=== PATIENT | female | born 2000 | race Hispanic/Latino ===

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

== ENCOUNTER 2018-02-15 16:45 | Emergency (ER) | payer BC ==
[~2018-02-15] VITALS: Ht 154.9 cm; Wt 57.6 kg
[2018-02-15 17:08] VITALS: BP 111/61
--- NOTE | 2018-02-15 17:15 | NUR ---
Arrival Pt in ED with the complaint of lower abdominal pain. States that it feels like when she had a bad UTI once, but she is worried that she may have got an STD from a boy that she slept with 3 weeks ago. Stated that her friend told her the boy was tested and had chlamydia. Pt. stated that she was on her period for almost the whole month of December and after that has discharge that what clear and white in color. Pt. states that the discharge has a foul odor. Pt is laying on gurny visiting with friend, pt is in stable condition at this time
[2018-02-15 17:38] LABS: BILIRUBIN,URINE NEGATIVE (NEGATIVE)
[2018-02-15 18:05] LABS: UA COLOR AMBER (YELLOW)
[2018-02-15 18:06] LABS: APPEARANCE,URINE CLOUDY (CLEAR)
[2018-02-15] MEDS ORDERED: ROCEPHIN IM IM STA (19:33)
--- NOTE | 2018-02-15 19:39 | ER.PDOC ---
General Chief Complaint: Abdomen Pain Stated Complaint: ABD PAIN Time seen by MD: 17:50 Source: patient Exam Limitations: no limitations History of Present Illness Initial Comments Thick foul vag disch for 1 wk. Had unprotected sex 2 wks ago. No sores. Pelvic pain. No urine or bowel c/o. Timing/Duration: other (above) Severity/Quality: mild, moderate Radiation: no radiation Associated Symptoms: denies symptoms, other (LMP entire last month. Unusual for her, but just came off contraceptive hormone Tx.) Exacerbated by: nothing Relieved By: nothing Allergies: Coded Allergies: No Known Allergies (Unverified , 10/22/16) Home Meds Reported Medications Hydrocodone Bit/Acetaminophen (NORCO 5-325) 1 Each Tablet, 1 TAB PO Q8HR PRN for PAIN 05/18/16 Vital Signs First Vital Signs Date Time Temp Pulse Resp B/P (MAP) Pulse Ox O2 Delivery O2 Flow Rate FiO2 02/15/18 17:05 98.2 89 16 98.2 02/15/18 17:05 99 Room Air 02/15/18 17:08 111/61 (78) Last Vital Signs Date Time Temp Pulse Resp B/P (MAP) Pulse Ox O2 Delivery O2 Flow Rate FiO2 02/15/18 17:08 98.2 89 16 111/61 (78) 99 Room Air 98.2 Past Medical History Medical History: no pertinent history Surgical History: no surgical history LMP (females 10-50): IRREGULAR MENS. Social History Smoking: non-smoker Alcohol Use: none Drug Use: none Constitutional: no symptoms reported EENTM: no symptoms reported Respiratory: no symptoms reported Cardiovascular: no symptoms reported Gastrointestinal: no symptoms reported Genitourinary: see HPI Musculoskeletal: no symptoms reported Skin: no symptoms reported All Other Systems: Reviewed and Negative Physical Exam General Appearance: No Apparent Distress, WD/WN, Anxious HEENT: PERRL/EOMI, Normal ENT Inspection Neck: Non-Tender, Full Range of Motion, Supple Respiratory: chest non-tender, lungs clear, normal breath sounds Cardiovascular: Normal Peripheral Pulses, Regular Rate, Rhythm, No Edema, No Gallop Gastrointestinal: Normal Bowel Sounds, No Pulsatile Mass, Tenderness (w/o guarding. ) Pelvic: Normal External Exam, Discharge (thick white. 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, No Motor/Sensory Deficits, Alert, Normal Mood/Affect, Oriented x 3 Skin: Normal Color, Warm/Dry Lymphatic: No Adenopathy Results/Orders Results/Orders Laboratory Tests Test 02/15/18 17:32 Urine Collection Type CCMS Urine Color SANTHOSH (YELLOW) Urine Appearance CLOUDY (CLEAR) Urine Bilirubin NEGATIVE MG/DL (NEGATIVE) Urine Ketones NEGATIVE (NEGATIVE) Urine Specific [place] 1.020 (1.005-1.035) Urine pH 6.5 (5.0-6.0) Urine Protein NEGATIVE (NEGATIVE) Urine Urobilinogen 1.0 (NEGATIVE) Urine Nitrate NEGATIVE (NEGATIVE) Urine Leukocyte Esterase 100/ul 1+ (NEGATIVE) Urine Blood NEGATIVE (NEGATIVE) Urine RBC NONE SEEN RBC/HPF (NONE Urine WBC 5-10 WBC/HPF (0-2) Urine Squamous Epithelial Cells MODERATE #/HPF (FEW) Urine Bacteria MODERATE (NONE SEEN) Urine Other MODERATE MUCOUS #/HPF Urine Glucose NORMAL (NEGATIVE) Urine HCG, Qualitative NEGATIVE (NEGATIVE) Progress Progress Preg test neg. Given STD meds. wet prep pos for clue cells. Course Vitals & review Data Vital Sign - Last 24 Hours 02/15/18 02/15/18 02/15/18 17:05 17:05 17:08 Temp 98.2 98.2 98.2 98.2 98.2 98.2 Pulse 89 89 89 Resp 16 16 16 B/P (MAP) 111/61 (78) Pulse Ox 99 99 O2 Delivery Room Air Room Air Laboratory Tests Test 02/15/18 17:32 Urine Collection Type CCMS Urine Color SANTHOSH Urine Appearance CLOUDY Urine Bilirubin NEGATIVE MG/DL Urine Ketones NEGATIVE Urine Specific [place] 1.020 Urine pH 6.5 Urine Protein NEGATIVE Urine Urobilinogen 1.0 Urine Nitrate NEGATIVE Urine Leukocyte Esterase 100/ul 1+ Urine Blood NEGATIVE Urine RBC NONE SEEN RBC/HPF Urine WBC 5-10 WBC/HPF Urine Squamous Epithelial Cells MODERATE #/HPF Urine Bacteria MODERATE Urine Other MODERATE MUCOUS #/HPF Urine Glucose NORMAL Urine HCG, Qualitative NEGATIVE Departure Time of Disposition: 20:38 Disposition: 01 HOME, SELF-CARE Impression: Primary Impression: Bacterial vaginosis Condition: Stable Patient Instructions: Bacterial Vaginosis, Sexually Transmitted Diseases (STD) In Referrals: DEVORAH MCKINLEY MD (PCP) PRIMARY CARE PROVIDER Additional Instructions: No douching. See your doctor next week for follow up. Return if worse. No intercourse until 1 week after treatment complete. Duration or Time Spent with Pa: 45 SONNY HOWARD DO Feb 15, 2018 19:39
[2018-02-15] MEDS ORDERED: ROCEPHIN ONE (19:43)
[2018-02-15] MEDS ORDERED: ZITHROMAX ONE (19:43)
[2018-02-15] MEDS ORDERED: LIDOCAINE 1% VIAL ONE (19:44)
[2018-02-15] MEDS ORDERED: ZITHROMAX PO ONE (20:00)
[2018-02-15 20:52] VITALS: BP 111/61
== END 2018-02-15 20:51 | disposition home or self-care (01) ==
LOC: ER 16:45
DX: N76.0 Acute vaginitis (principal); B96.89 Other specified bacterial agents as the cause of diseases classified elsewhere
CPT/HCPCS: 36415; 81000; 81025; 87077; 87086; 87186; 87210; 87591; 96372; 99284; J0696; J2001; Q0144

== ENCOUNTER 2018-03-13 08:51 | Emergency (ER) | payer BC ==
[~2018-03-13] VITALS: Ht 154.9 cm; Wt 57.2 kg
[2018-03-13 09:12] VITALS: BP 117/63
[2018-03-13] MEDS ORDERED: ZOFRAN ODT SL STA (09:16)
[2018-03-13] MEDS ORDERED: LOMOTIL PO STA (09:16)
--- NOTE | 2018-03-13 09:22 | ER.PDOC ---
General Chief Complaint: Abdomen Pain Stated Complaint: ABD PAINS, D Time seen by MD: 09:00 Source: patient Exam Limitations: no limitations History of Present Illness Severity/Quality: mild Abdominal Pain Onset Location: RUQ, LUQ Associated Symptoms (vomiting): mild vomiting Associated Symptoms (diarrhea): mild, blood-streaked Allergies: Coded Allergies: No Known Allergies (Unverified , 10/22/16) Home Meds Reported Medications Hydrocodone Bit/Acetaminophen (NORCO 5-325) 1 Each Tablet, 1 TAB PO Q8HR PRN for PAIN 05/18/16 Vital Signs First Vital Signs Date Time Temp Pulse Resp B/P (MAP) Pulse Ox O2 Delivery O2 Flow Rate FiO2 02/15/18 20:52 89 03/13/18 09:07 97.8 18 98 Room Air 97.8 03/13/18 09:12 117/63 (81) Last Vital Signs Date Time Temp Pulse Resp B/P (MAP) Pulse Ox O2 Delivery O2 Flow Rate FiO2 03/13/18 09:12 97.3 76 18 117/63 (81) 98 Room Air 97.3 Past Medical History Medical History: no pertinent history Surgical History: no surgical history LMP (females 10-50): 1 month Family History Significant Family History: no pertinent family hx Social History Smoking: non-smoker Alcohol Use: none Drug Use: none Reviewed Nursing Reviewed: Vital Signs, Abn. Noted All Other Systems: Reviewed and Negative Physical Exam General Appearance: No Apparent Distress, WD/WN HEENT: PERRL/EOMI, Normal ENT Inspection, TMs Normal, Pharynx Normal Neck: Non-Tender, Full Range of Motion, Supple, Normal Inspection Respiratory: chest non-tender, lungs clear, normal breath sounds, no respiratory distress, no accessory muscle use Cardiovascular: Normal Peripheral Pulses, Regular Rate, Rhythm, No Edema, No Gallop, No JVD, No Murmur Gastrointestinal: Tenderness (RUQ) Back: Normal Inspection, No CVA Tenderness, No Vertebral Tenderness Extremities: Normal Range of Motion, Non-Tender, Normal Inspection, No Pedal Edema, No Calf Tenderness, Normal Capillary Refill, Pelvis Stable 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, No Motor/Sensory Deficits, Alert, Normal Mood/Affect, Oriented x 3 Skin: Normal Color, Warm/Dry Lymphatic: No Adenopathy Results/Orders Results/Orders Laboratory Tests Test 03/13/18 09:25 White Blood Count 5.1 10^3/uL (4.5-12.5) Red Blood Count 5.22 10^6/uL (4.00-5.20) Hemoglobin 16.3 g/dL (12.4-14.8) Hematocrit 46.0 % (36.0-46.0) Mean Corpuscular Volume 88.1 fL (78-100) Mean Corpuscular Hemoglobin 31.2 pg (26-34) Mean Corpuscular Hemoglobin Concent 35.4 g/dL (33-37) Red Cell Distribution Width 12.2 % (11.5-14.5) Platelet Count 214 10^3/uL (150-400) Mean Platelet Volume 9.8 fL (7.8-11.0) Neutrophils (%) (Auto) 48.1 % (41.0-85.0) Lymphocytes (%) (Auto) 36.4 % (24.0-44.0) Monocytes (%) (Auto) 11.2 % (5.0-12.0) Neutrophils # (Auto) 2.4 10^3/uL (1.8-8.0) Lymphocytes # (Auto) 1.9 10^3/uL (1.2-5.2) Monocytes # (Auto) 0.6 10^3/uL (0.0-0.4) Absolute Immature Granulocyte (auto 0 10^3 u/L (0-2) Eosinophils % 3.7 % (0.0-5.0) Basophils % 0.6 % (0.0-0.2) Basophils # 0.0 10^3/uL (0.0-0.1) Eosinophil Count 0.2 10^3/uL (0.0-0.2) Prothrombin Time 9.9 SEC (9.8-11.9) Prothrombin Time INR (Non-Therap) 1.0 Sodium Level 141 mmol/L (132-145) Potassium Level 3.6 mmol/L (3.6-5.2) Chloride Level 105.0 mmol/L (96-109) Carbon Dioxide Level 25.3 mmol/L (20.0-32) Anion Gap 14.3 Blood Urea Nitrogen 14 mg/dL (7-18) Creatinine 0.82 mg/dL (0.59-1.40) Estimated GFR () 108.7 (>/=60) BUN/Creatinine Ratio 17.0 Glucose Level 104 mg/dL (70-110) Calcium Level 9.2 mg/dL (8.4-10.5) Total Bilirubin 0.6 mg/dL (0.2-1.0) Aspartate Amino Transf (AST/SGOT) 11 U/L (0-35) Alanine Aminotransferase (ALT/SGPT) 19 U/L (12-78) Alkaline Phosphatase 83 U/L (50-136) Total Protein 7.6 g/dL (6.4-8.2) Albumin 4.0 g/dL (3.4-5.0) Globulin 3.6 Amylase Level 41 U/L (25-115) Lipase 167 U/L (114-286) Serum HCG, Qualitative NEGATIVE (NEGATIVE) Percent Immature Gran (Cell Imm) 0.00 % (0.00-0.50) Helicobacter pylori Screen NEGATIVE (NEGATIVE) Administered Medications Medications (Trade) Dose Ordered Sig/[place]ico Route PRN Reason Start Time Stop Time Status Last Admin Dose Admin Diphenoxylate HCl/ Atropine (Lomotil) 1 each STAT STAT PO 03/13/18 09:16 03/13/18 09:21 DC 03/13/18 09:54 Ondansetron HCl (Zofran Odt) 4 mg STAT STAT SL 03/13/18 09:16 03/13/18 09:21 DC 03/13/18 09:54 Ketorolac Tromethamine (Toradol) 60 mg OT ONCE IM 03/13/18 09:30 03/13/18 09:31 DC 03/13/18 09:55 Consult/PCP Time Consult/PCP Called: 11:11 Consult/PCP: DR MCKNILEY Departure Time of Disposition: 10:33 Disposition: 01 HOME, SELF-CARE Impression: Primary Impression: RUQ pain Condition: Improved Referrals: DEVORAH MCKINLEY MD (PCP) PRIMARY CARE PROVIDER Duration or Time Spent with Pa: 2 HRS BERNARDO NEELY MD Mar 13, 2018 09:22
[2018-03-13] MEDS ORDERED: TORADOL IM ONE (09:30)
[2018-03-13 09:31] LABS: BASOPHIL % 0.6 % (0.0-0.2); EOSINOPHIL # 0.2 10^3/uL (0.0-0.2); EOSINOPHIL % 3.7 % (0.0-5.0); HEMOGLOBIN 16.3 g/dL (12.4-14.8); LYMPHOCYTES # 1.9 10^3/uL (1.2-5.2); LYMPHOCYTES % 36.4 % (24.0-44.0); MEAN CELL HGB 31.2 pg (26-34); MEAN CELL HGB CONCENTRATION 35.4 g/dL (33-37); MEAN CORP VOLUME 88.1 fL (78-100); MEAN PLATELET VOLUME 9.8 fL (7.8-11.0); MONOCYTES # 0.6 10^3/uL (0.0-0.4); MONOCYTES % 11.2 % (5.0-12.0); NEUTROPHIL # 2.4 10^3/uL (1.8-8.0); NEUTROPHILS % 48.1 % (41.0-85.0); RED CELL DISTRIBUTION WIDTH 12.2 % (11.5-14.5); WHITE BLOOD CELL 5.1 10^3/uL (4.5-12.5)
[2018-03-13] MEDS ORDERED: ZOFRAN ODT ONE (09:51)
[2018-03-13] MEDS ORDERED: TORADOL ONE (09:52)
[2018-03-13] MEDS ORDERED: LOMOTIL ONE (09:52)
[2018-03-13 10:01] LABS: CALCIUM 9.2 mg/dL (8.4-10.5); CARBON DIOXIDE 25.3 mmol/L (20.0-32)
[2018-03-13 10:03] LABS: HCG QUALITATIVE SERUM NEGATIVE (NEGATIVE)
--- NOTE | 2018-03-13 10:12 | DIREP ---
PROCEDURE:US ABDOMEN LIMITED (SINGLE ORGAN - QUAD) COMPARISON:None. INDICATIONS:RUQ PAIN TECHNIQUE:High resolution sonographic examination was performed of the abdomen. FINDINGS: RIGHT KIDNEY:10.46 cm x 4.99 cm x 5.81 cm, 158.70 ml GALL BLADDER WALL:3 mm CBD:2.6 mm PANCREAS:Normal. LIVER:Normal size and echogenicity. No significant masses. BILIARY:Normal appearing gallbladder and biliary tree. RIGHT KIDNEY:Negative. OTHER:Negative. CONCLUSION:Normal right upper quadrant sonogram with no cholelithiasis or dilated biliary ducts. Dictated by: Ryan Barrientos M.D. on 03/13/2018 at 09:02 AM
[2018-03-13 10:20] LABS: BILIRUBIN,URINE NEGATIVE (NEGATIVE); UROBILINOGEN,URINE NORMAL (NEGATIVE)
[2018-03-13 10:30] LABS: APPEARANCE,URINE HAZY (CLEAR); UA COLOR YELLOW (YELLOW)
[2018-03-13 10:55] VITALS: BP 102/59
[2018-03-13 11:07] VITALS: BP 102/59
== END 2018-03-13 10:56 | disposition home or self-care (01) ==
LOC: ER 08:51
DX: R10.11 Right upper quadrant pain (principal); R10.12 Left upper quadrant pain; R11.10 Vomiting, unspecified; R19.7 Diarrhea, unspecified; Z79.899 Other long term (current) drug therapy
CPT/HCPCS: 36415; 76705; 80053; 80307; 81000; 82150; 83690; 84703; 85025; 85610; 86677; 87086; 96372; 99285; J1885; Q0162

== ENCOUNTER 2018-06-24 15:03 | Emergency (ER) | payer BC, OTHER ==
[~2018-06-24] VITALS: Ht 154.9 cm; Wt 59.0 kg
--- NOTE | 2018-06-24 15:14 | NUR ---
TRIAGE PT TRIAGED AT THIS TIME IN TRIAGE ROOM DUE TO NO AVAILABLE ED BEDS. PT STATES HAS HAD VAGINAL SPOTTING X1 WEEK AND BEGAN HAVING CRAMPING TODAY. PT FOUND OUT TODAY THAT SHE IS . [facility] AND WAS TOLD SHE'S APPROXIMATELY 6 WEEKS . NO ACUTE DISTRESS NOTED. PT WAITING IN WAITING ROOM FOR AVAILABLE BED.
[2018-06-24 15:41] VITALS: BP 107/69
[2018-06-24 16:14] LABS: BILIRUBIN,URINE NEGATIVE (NEGATIVE)
[2018-06-24 16:32] LABS: UA COLOR YELLOW (YELLOW)
[2018-06-24 16:33] LABS: APPEARANCE,URINE SLIGHTLY HAZY (CLEAR)
[2018-06-24 16:49] LABS: BASOPHIL % 0.4 % (0.0-0.2); EOSINOPHIL % 0.8 % (0.0-5.0); HEMOGLOBIN 16.1 g/dL (12.4-14.8); LYMPHOCYTES # 1.1 10^3/uL (1.2-5.2); LYMPHOCYTES % 22.1 % (24.0-44.0); MEAN CELL HGB 31.8 pg (26-34); MEAN CELL HGB CONCENTRATION 36.3 g/dL (33-37); MEAN CORP VOLUME 87.5 fL (78-100); MEAN PLATELET VOLUME 9.9 fL (7.8-11.0); MONOCYTES # 0.5 10^3/uL (0.0-0.4); MONOCYTES % 8.7 % (5.0-12.0); NEUTROPHIL # 3.5 10^3/uL (1.8-8.0); NEUTROPHILS % 67.8 % (41.0-85.0); PLATELET COUNT 212 10^3/uL (150-400); RED CELL DISTRIBUTION WIDTH 12.5 % (11.5-14.5); WHITE BLOOD CELL 5.2 10^3/uL (4.5-12.5)
--- NOTE | 2018-06-24 17:27 | DIREP ---
PROCEDURE:US OB 1ST TRI - TV COMPARISON:None. INDICATIONS:VAGINAL BLEEDING TECHNIQUE:Transabdominal and endovaginal pelvic ultrasound images were obtained. Endovaginal images were obtained to optimally evaluate the and maternal adnexal structures. FINDINGS: GESTATIONAL SAC:Present. No subchorionic hemorrhage. FLUID:Volume within normal limits. POLE:Present. CRL = 0.9 cm, corresponding to an EGA of 7 weeks 0 days. YOLK SAC:Present. CARDIAC ACTIVITY:Present. 145 bpm. UTERUS:The uterus measures approximately 9.0 x 4.5 x 5.6 cm. A single intrauterine gestational sac is identified. OVARIES:The right ovary measures approximately 3.4 x 2.1 x 3.9 cm. The left ovary measures approximately 3.3 x 2.0 x 2.1 cm. Both ovaries appear within normal limits. CUL-DE-SAC:No significant free fluid within the pelvic cul-de-sac. US PATRICK:02/10/2019 CONCLUSION: 1. Single intrauterine corresponding to an estimated gestational age of approximately 7 weeks 0 days per crown-rump length. cardiac activity detected at 145 beats per min. Dictated by: Arnold Zamora M.D. On 06/24/2018 at 05:22 PM
[2018-06-24 17:30] LABS: CALCIUM 8.8 mg/dL (8.4-10.5); CARBON DIOXIDE 22.6 mmol/L (20.0-32)
--- NOTE | 2018-06-24 18:38 | ER.PDOC ---
General Chief Complaint: less 20 wks Stated Complaint: UNDER 20 WKS PREG ABD PAIN Time seen by MD: 18:32 Source: patient Exam Limitations: no limitations History of Present Illness Initial Comments Vaginal bleeding for 1 week Timing/Duration: week, intermittent Severity/Quality: cramping Location of Pain: pelvic pain Vaginal Bleed: spotting LMP (females 10-50): : 1 Para: 0 Test: home Sexual [place] History: multiple partners Associated Symptoms: nausea/vomiting Allergies: Coded Allergies: No Known Allergies (Unverified , 10/22/16) Home Meds Reported Medications Hydrocodone Bit/Acetaminophen (NORCO 5-325) 1 Each Tablet, 1 TAB PO Q8HR PRN for PAIN 05/18/16 Past Medical History Medical History: no pertinent history Surgical History: appendectomy LMP (females 10-50): Social History Smoking: non-smoker Alcohol Use: none Drug Use: none Review of Systems Constitutional: no symptoms reported EENTM: no symptoms reported Respiratory: no symptoms reported Cardiovascular: no symptoms reported Gastrointestinal: no symptoms reported Genitourinary: see HPI All Other Systems: Reviewed and Negative Physical Exam General Appearance: No Apparent Distress, WD/WN Neck: nml inspection, non-tender Cardiovascular/Respiratory: Regular Rate, Rhythm, No M/R/G, Normal Peripheral Pulses, No JVD, Normal Breath Sounds, No Respiratory Distress Abdomen: Normal Bowel Sounds, Soft, No Organomegaly, No Pulsatile Mass, Tenderness (lower abdomen) Back: nml inspection Extremities: Normal Range of Motion, Non-Tender, Normal Inspection, No Pedal Edema, No Calf Tenderness, Normal Capillary Refill 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, No Motor/Sensory Deficits, Alert, Normal Mood/Affect, Oriented x 3 Skin: Normal Color, Warm/Dry Results/Orders Results/Orders Laboratory Tests Test 06/24/18 00:00 06/24/18 16:05 06/24/18 16:40 Urine Collection Type UNKNOWN Urine Color YELLOW (YELLOW) Urine Appearance SLIGHTLY HAZY (CLEAR) Urine Bilirubin NEGATIVE MG/DL (NEGATIVE) Urine Ketones NEGATIVE (NEGATIVE) Urine Specific [place] 1.015 (1.005-1.035) Urine pH 6.5 (5.0-6.0) Urine Protein 15 mg/dL (NEGATIVE) Urine Urobilinogen 4.0 (NEGATIVE) Urine Nitrate NEGATIVE (NEGATIVE) Urine Leukocyte Esterase NEGATIVE (NEGATIVE) Urine Blood NEGATIVE (NEGATIVE) Urine RBC NONE SEEN RBC/HPF (NONE Urine WBC 0-2 WBC/HPF (0-2) Urine Squamous Epithelial Cells MODERATE #/HPF (FEW) Urine Bacteria FEW (NONE SEEN) Urine Other #/HPF Urine Glucose NORMAL (NEGATIVE) Urine HCG, Qualitative POSITIVE (NEGATIVE) White Blood Count 5.2 10^3/uL (4.5-12.5) Red Blood Count 5.06 10^6/uL (4.00-5.20) Hemoglobin 16.1 g/dL (12.4-14.8) Hematocrit 44.3 % (36.0-46.0) Mean Corpuscular Volume 87.5 fL (78-100) Mean Corpuscular Hemoglobin 31.8 pg (26-34) Mean Corpuscular Hemoglobin Concent 36.3 g/dL (33-37) Red Cell Distribution Width 12.5 % (11.5-14.5) Platelet Count 212 10^3/uL (150-400) Mean Platelet Volume 9.9 fL (7.8-11.0) Neutrophils (%) (Auto) 67.8 % (41.0-85.0) Lymphocytes (%) (Auto) 22.1 % (24.0-44.0) Monocytes (%) (Auto) 8.7 % (5.0-12.0) Neutrophils # (Auto) 3.5 10^3/uL (1.8-8.0) Lymphocytes # (Auto) 1.1 10^3/uL (1.2-5.2) Monocytes # (Auto) 0.5 10^3/uL (0.0-0.4) Absolute Immature Granulocyte (auto 0.01 10^3 u/L (0-2) Eosinophils % 0.8 % (0.0-5.0) Basophils % 0.4 % (0.0-0.2) Basophils # 0.0 10^3/uL (0.0-0.1) Eosinophil Count 0.0 10^3/uL (0.0-0.2) Prothrombin Time 10.1 SEC (9.8-11.9) Prothrombin Time INR (Non-Therap) 1.0 Activated Partial Thromboplast Time 23.6 SEC (24.67-30.72) Sodium Level 136 mmol/L (132-145) Potassium Level 3.7 mmol/L (3.6-5.2) Chloride Level 102.0 mmol/L (96-109) Carbon Dioxide Level 22.6 mmol/L (20.0-32) Anion Gap 15.1 Blood Urea Nitrogen 10 mg/dL (7-18) Creatinine 0.70 mg/dL (0.59-1.40) Estimated GFR () 129.1 (>/=60) BUN/Creatinine Ratio 14.0 Glucose Level 91 mg/dL (70-110) Calcium Level 8.8 mg/dL (8.4-10.5) Total Bilirubin 0.6 mg/dL (0.2-1.0) Aspartate Amino Transf (AST/SGOT) 13 U/L (0-35) Alanine Aminotransferase (ALT/SGPT) 17 U/L (12-78) Alkaline Phosphatase 57 U/L (50-136) Total Protein 7.7 g/dL (6.4-8.2) Albumin 4.0 g/dL (3.4-5.0) Globulin 3.7 Human Chorionic Gonadotropin, Quant 21717 mIU/mL Percent Immature Gran (Cell Imm) 0.20 % (0.00-0.50) Progress Progress OB Sonogram: Single intrauterine corresponding to an estimated gestational age of approximately 7 weeks 0 days per crown-rump length. cardiac activity detected at 145 beats per min. Departure Time of Disposition: 18:34 Disposition: 01 HOME, SELF-CARE Impression: Primary Impression: Vaginal bleeding before 22 weeks gestation Additional Impression: UTI (urinary tract infection) Condition: Stable Patient Instructions: Urinary Tract Infection, [id number] Referrals: DEVORAH MCKINLEY MD (PCP) PRIMARY CARE PROVIDER ASHWINI LAWTON NP Additional Instructions: Macrobid Phenergan [facility], call for appointment tomorrow. Duration or Time Spent with Pa: 2 hours Problem Qualifiers Additional Impression: UTI (urinary tract infection) Urinary tract infection type: site unspecified Hematuria presence: with hematuria Qualified Codes: N39.0 - Urinary tract infection, site not specified ; R31.9 - Hematuria, unspecified TREE MORENO MD Jun 24, 2018 18:38
[2018-06-24 19:30] VITALS: BP 110/65
== END 2018-06-24 18:49 | disposition home or self-care (01) ==
LOC: ER 15:03
DX: O23.41 Unspecified infection of urinary tract in pregnancy, first trimester (principal); R31.9 Hematuria, unspecified; O20.9 Hemorrhage in early pregnancy, unspecified; Z90.49 Acquired absence of other specified parts of digestive tract; Z3A.01 Less than 8 weeks gestation of pregnancy
CPT/HCPCS: 36415; 76801; 76817; 80053; 81000; 81025; 84702; 85025; 85610; 85730; 86900; 87086; 99284

== ENCOUNTER 2018-06-30 22:32 | Emergency (ER) | payer OTHER ==
[~2018-06-30] VITALS: Ht 157.5 cm; Wt 52.2 kg
[2018-06-30 22:52] VITALS: BP 112/43
[2018-06-30 23:03] LABS: BILIRUBIN,URINE NEGATIVE (NEGATIVE); UROBILINOGEN,URINE NORMAL (NEGATIVE)
--- NOTE | 2018-06-30 23:06 | ER.PDOC ---
General Chief Complaint: less 20 wks Stated Complaint: ABD PAIN Time seen by MD: 23:00 Source: patient Exam Limitations: no limitations History of Present Illness Initial Comments Pt with abdominal and pelvic pain radiating to back, she was seen for similar reasons on Sunday, an US was performed and an early and only a UTI Timing/Duration: yesterday Severity/Quality: severe, cramping Location of Pain: low back pain LMP (females 10-50): Associated Symptoms: lower back pain Allergies: Coded Allergies: No Known Allergies (Unverified , 10/22/16) Home Meds Reported Medications Hydrocodone Bit/Acetaminophen (NORCO 5-325) 1 Each Tablet, 1 TAB PO Q8HR PRN for PAIN 05/18/16 Past Medical History Medical History: no pertinent history Surgical History: appendectomy LMP (females 10-50): 2 months Social History Smoking: non-smoker Drug Use: none Review of Systems Constitutional: no symptoms reported EENTM: no symptoms reported Respiratory: no symptoms reported Cardiovascular: no symptoms reported Gastrointestinal: see HPI Genitourinary: see HPI Musculoskeletal: no symptoms reported Skin: no symptoms reported Psychiatric/Neurological: no symptoms reported Endocrine: no symptoms reported Hematologic/Lymphatic: no symptoms reported Physical Exam General Appearance: No Apparent Distress, WD/WN EENT: eyes nml inspection, nml ENT inspection, pharynx nml Neck: nml inspection, non-tender Cardiovascular/Respiratory: Regular Rate, Rhythm, No M/R/G, Normal Peripheral Pulses, No JVD, Normal Breath Sounds, No Respiratory Distress Abdomen: Normal Bowel Sounds, Soft, No Organomegaly, No Pulsatile Mass, Tenderness (bilateral pelvic pain) Back: CVA tenderness (bilateral) Extremities: Normal Range of Motion, Non-Tender, Normal Inspection, No Pedal Edema, No Calf Tenderness, Normal Capillary Refill 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, No Motor/Sensory Deficits, Alert, Normal Mood/Affect, Oriented x 3 Skin: Normal Color, Warm/Dry Lymphatic: No Adenopathy Results/Orders Results/Orders Laboratory Tests Test 06/30/18 22:57 06/30/18 23:03 Urine Collection Type CCMS Urine Color YELLOW (YELLOW) Urine Appearance CLEAR (CLEAR) Urine Bilirubin NEGATIVE MG/DL (NEGATIVE) Urine Ketones NEGATIVE (NEGATIVE) Urine Specific [place] 1.010 (1.005-1.035) Urine pH 7 (5.0-6.0) Urine Protein NEGATIVE (NEGATIVE) Urine Urobilinogen NORMAL (NEGATIVE) Urine Nitrate NEGATIVE (NEGATIVE) Urine Leukocyte Esterase NEGATIVE (NEGATIVE) Urine Blood 25 1+ (NEGATIVE) Urine RBC 0-2 RBC/HPF (NONE SEEN) Urine WBC 0-2 WBC/HPF (0-2) Urine Squamous Epithelial Cells FEW #/HPF (FEW) Urine Bacteria RARE (NONE SEEN) Urine Other MUCUS RARE #/HPF Urine Glucose NORMAL (NEGATIVE) White Blood Count 7.0 10^3/uL (4.5-12.5) Red Blood Count 4.62 10^6/uL (4.00-5.20) Hemoglobin 15.0 g/dL (12.4-14.8) Hematocrit 40.2 % (36.0-46.0) Mean Corpuscular Volume 87.0 fL (78-100) Mean Corpuscular Hemoglobin 32.5 pg (26-34) Mean Corpuscular Hemoglobin Concent 37.3 g/dL (33-37) Red Cell Distribution Width 12.3 % (11.5-14.5) Platelet Count 210 10^3/uL (150-400) Mean Platelet Volume 10.1 fL (7.8-11.0) Neutrophils (%) (Auto) 67.7 % (41.0-85.0) Lymphocytes (%) (Auto) 20.0 % (24.0-44.0) Monocytes (%) (Auto) 9.7 % (5.0-12.0) Neutrophils # (Auto) 4.8 10^3/uL (1.8-8.0) Lymphocytes # (Auto) 1.4 10^3/uL (1.2-5.2) Monocytes # (Auto) 0.7 10^3/uL (0.0-0.4) Absolute Immature Granulocyte (auto 0.02 10^3 u/L (0-2) Eosinophils % 2.0 % (0.0-5.0) Basophils % 0.3 % (0.0-0.2) Basophils # 0.0 10^3/uL (0.0-0.1) Eosinophil Count 0.1 10^3/uL (0.0-0.2) Sodium Level 137 mmol/L (132-145) Potassium Level 3.6 mmol/L (3.6-5.2) Chloride Level 104.0 mmol/L (96-109) Carbon Dioxide Level 21.6 mmol/L (20.0-32) Anion Gap 15.0 Blood Urea Nitrogen 7 mg/dL (7-18) Creatinine 0.72 mg/dL (0.59-1.40) Estimated GFR () 125.0 (>/=60) BUN/Creatinine Ratio 9.0 Glucose Level 95 mg/dL (70-110) Calcium Level 8.4 mg/dL (8.4-10.5) Total Bilirubin 0.3 mg/dL (0.2-1.0) Aspartate Amino Transf (AST/SGOT) 13 U/L (0-35) Alanine Aminotransferase (ALT/SGPT) 20 U/L (12-78) Alkaline Phosphatase 60 U/L (50-136) Total Protein 7.1 g/dL (6.4-8.2) Albumin 3.5 g/dL (3.4-5.0) Globulin 3.6 Human Chorionic Gonadotropin, Quant 61121 mIU/mL Percent Immature Gran (Cell Imm) 0.30 % (0.00-0.50) Departure Time of Disposition: 23:54 Disposition: 01 HOME, SELF-CARE Impression: Primary Impression: Urinary tract infection Condition: Stable Patient Instructions: Urinary Tract Infection Referrals: DEVORAH MCKINLEY MD (PCP) PRIMARY CARE PROVIDER Duration or Time Spent with Pa: ADONAY BULLOCK MD Jun 30, 2018 23:06
[2018-06-30 23:09] LABS: BASOPHIL % 0.3 % (0.0-0.2); EOSINOPHIL # 0.1 10^3/uL (0.0-0.2); LYMPHOCYTES # 1.4 10^3/uL (1.2-5.2); MEAN CELL HGB 32.5 pg (26-34); MEAN CELL HGB CONCENTRATION 37.3 g/dL (33-37); MEAN PLATELET VOLUME 10.1 fL (7.8-11.0); MONOCYTES # 0.7 10^3/uL (0.0-0.4); MONOCYTES % 9.7 % (5.0-12.0); NEUTROPHIL # 4.8 10^3/uL (1.8-8.0); NEUTROPHILS % 67.7 % (41.0-85.0); PLATELET COUNT 210 10^3/uL (150-400); RED CELL DISTRIBUTION WIDTH 12.3 % (11.5-14.5)
[2018-06-30 23:12] LABS: APPEARANCE,URINE CLEAR (CLEAR); UA COLOR YELLOW (YELLOW)
[2018-06-30 23:47] LABS: CALCIUM 8.4 mg/dL (8.4-10.5); CARBON DIOXIDE 21.6 mmol/L (20.0-32)
[2018-07-01] VITALS: BP 114/56
[2018-07-01 00:07] VITALS: BP 114/56
== END 2018-07-01 00:02 | disposition home or self-care (01) ==
LOC: ER 22:32
DX: O23.41 Unspecified infection of urinary tract in pregnancy, first trimester (principal); Z3A.08 8 weeks gestation of pregnancy; Z90.49 Acquired absence of other specified parts of digestive tract; Z79.899 Other long term (current) drug therapy
CPT/HCPCS: 36415; 80053; 81000; 84702; 85025; 85610; 85730; 87086; 99283

== ENCOUNTER 2018-07-15 09:23 | Emergency (ER) | payer OTHER ==
[~2018-07-15] VITALS: Ht 152.4 cm; Wt 58.5 kg
--- NOTE | 2018-07-15 09:25 | NUR ---
ARRIVAL PATIENT TO ROOM 8, AMBULATORY. STATES THAT SHE IS DEPRESSED AND HAS A LOT GOING ON. PATIENT IS 10 WEEKS AND TEARFUL AND WANTS SOMETHING FOR DEPRESSION. SHE CALLED HER OBGYN WHO IS OUT OF TOWN AND WAS TOLD TO COME TO THE ER. ASSSESSMENT COMPLETED, AWAITING MD LYNN.
[2018-07-15 09:40] VITALS: BP 125/67
--- NOTE | 2018-07-15 09:50 | ER.PDOC ---
General Chief Complaint: General Complaint Stated Complaint: GENERAL Time seen by MD: 09:47 Source: patient Exam Limitations: no limitations History of Present Illness Initial Comments Depressed for 4 days. no SI or HI. Patient is 10 weeks . Severity: moderate Associated Symptoms: Depressed Allergies: Coded Allergies: No Known Allergies (Unverified , 10/22/16) Home Meds Reported Medications Hydrocodone Bit/Acetaminophen (NORCO 5-325) 1 Each Tablet, 1 TAB PO Q8HR PRN for PAIN 05/18/16 Past Medical History Medical History: no pertinent history Surgical History: appendectomy LMP (females 10-50): Social History Smoking: non-smoker Alcohol Use: none Drug Use: none Review of Systems Constitutional: no symptoms reported EENTM: no symptoms reported Respiratory: no symptoms reported Cardiovascular: no symptoms reported Gastrointestinal: no symptoms reported Psychiatric/Neurological: see HPI All Other Systems: Reviewed and Negative Physical Exam General Appearance: No acute distress, Alert Neck: Non-Tender, Full Range of Motion, Supple, Normal Inspection Respiratory: chest non-tender, lungs clear, normal breath sounds, no respiratory distress, no accessory muscle use Cardiovascular: Normal Peripheral Pulses, Regular Rate, Rhythm, No Edema, No Gallop, No JVD, No Murmur Gastrointestinal: Normal Bowel Sounds, No Organomegaly, No Pulsatile Mass, Non Tender, Soft Extremities: Non-Tender, Normal Range of Motion, No Evidence of Trauma, No Edema Neurological/Psychiatric: Alert, Depressed Affect Appearance/Memory/Insight: Appropriate Appearance, Appropriate Insight, Neat, No Memory Impairment Behavior/Eye Contact/Speech: Cooperative, Good Eye Contact, Normal Speech Thoughts/Hallucinations: Normal Thought Pattern, No Apparent Hallucination Skin: Normal Color, Warm/Dry Progress Progress Spoke to Dr. Lima and Dr. Najera and patient will be going to see Dr. Najera in his office from the ED. Departure Time of Disposition: 09:50 Disposition: 01 HOME, SELF-CARE Impression: Primary Impression: Depressed Condition: Stable Referrals: DEVORAH MCKINLEY MD (PCP) PRIMARY CARE PROVIDER Additional Instructions: F/U with Dr. Najera this morning in his office. Duration or Time Spent with Pa: 20 mins Problem Qualifiers Primary Impression: Depressed Depression Type: unspecified Qualified Codes: F32.9 - Major depressive disorder, single episode, unspecified TREE MORENO MD Jul 15, 2018 09:50
[2018-07-15 10:00] VITALS: BP 125/67
== END 2018-07-15 10:00 | disposition home or self-care (01) ==
LOC: ER 09:23
DX: O99.341 Other mental disorders complicating pregnancy, first trimester (principal); F32.9 Major depressive disorder, single episode, unspecified; Z90.49 Acquired absence of other specified parts of digestive tract; Z79.899 Other long term (current) drug therapy; Z3A.10 10 weeks gestation of pregnancy
CPT/HCPCS: 99284